=== PATIENT | female | born 1950 | race Caucasian/White ===

== ENCOUNTER 2016-12-17 11:34 | Emergency (ER) | payer OTHER ==
[2016-12-17 11:46] VITALS: BP 154/86
[2016-12-17] MEDS ORDERED: Aspirin Low Dose CHEW TAB* 81 MG PO ONE (13:27)
--- NOTE | 2016-12-17 14:02 | UC ---
Dizzy HPI HPI Summary: woke today with spinning sensation, headache and nausea, her arms and chest feel hollow and empty - History Of Current Complaint Chief Complaint: UCDizziness Stated Complaint: DIZZINESS Time Seen by Provider: 12/17/16 13:06 Hx Obtained From: Patient ?: No Onset/Duration: Sudden Onset Timing: Intermittent Episode Lasting - most of the vertigo has resolved, hollowness and nausea continues Severity Initially: Severe Severity Currently: Moderate Character: Room Spinning Aggravating Factor(s): Nothing Alleviating Factor(s): Closing Eyes Associated Signs And Symptoms: Positive: Nausea - Allergies/Home Medications Allergies/Adverse Reactions: Allergies Allergy/AdvReac Type Severity Reaction Status Date / Time Bee Venom Allergy Unknown Unknown Verified 05/13/12 13:58 Reaction Details PMH/Surg Hx/FS Hx/Imm Hx Previously Healthy: No Cancer History: Colorectal Cancer - Surgical History Surgical History: Yes Surgery Procedure, Year, and Place: see above - Family History Known Family History: Positive: None - Social History Occupation: Retired Lives: With Family Alcohol Use: Rare Substance Use Type: None Smoking Status (MU): Never Smoked Tobacco Review of Systems Constitutional: Negative Skin: Negative Eyes: Negative ENT: Negative Respiratory: Negative Gastrointestinal: Nausea Genitourinary: Negative Motor: Negative Neurovascular: Negative Musculoskeletal: Negative Neurological: Headache Psychological: Negative All Other Systems Reviewed And Are Negative: Yes Physical Exam Triage Information Reviewed: Yes Appearance: Well-Appearing, No Pain Distress, Well-Nourished Vital Signs: Initial Vital Signs Temp 97.5 F 12/17/16 11:42 Pulse 80 12/17/16 11:42 Resp 18 12/17/16 11:42 BP 154/86 12/17/16 11:42 Pulse Ox 100 12/17/16 11:42 Vital Signs Reviewed: Yes Eye Exam: Normal Eyes: Positive: Conjunctiva Clear ENT Exam: Normal ENT: Positive: Normal ENT inspection, Hearing grossly normal, Pharynx normal, TMs normal, Other: - perrls, eomi, fundascopic exam wnl. Negative: Nasal congestion, Nasal drainage, Trismus, Muffled/hoarse voice Dental Exam: Normal Neck exam: Normal Neck: Positive: Supple, Nontender, No Lymphadenopathy Respiratory Exam: Normal Respiratory: Positive: Chest non-tender, Lungs clear, Normal breath sounds, No respiratory distress, No accessory muscle use Cardiovascular Exam: Normal Cardiovascular: Positive: RRR, No Murmur, Pulses Normal, Brisk Capillary Refill Abdominal Exam: Normal Abdomen Description: Positive: Nontender, No Organomegaly, Soft Bowel Sounds: Positive: Present Musculoskeletal Exam: Normal Musculoskeletal: Positive: Strength Intact, ROM Intact, No Edema Neurological Exam: Normal Neurological: Positive: Alert, Muscle Tone Normal Psychological Exam: Normal Psychological: Positive: Normal Response To Family, Age Appropriate Behavior Skin Exam: Normal Diagnostics - EKG Cardiac Rate: NL Cardiac Rhythm: Sinus: Normal, Other Rhythm: Normal - with PAC Ectopy: PACs ST Segment: Non-Specific - V4,5,6 flattened t waves Dizzy Course/Dx - Course Course Of Treatment: Asprin, transfer to hospital, refused EMS driving - Differential Dx/Diagnosis Differential Diagnosis/HQI/PQRI: Benign Paroxysmal Positional Vertigo, Coronary Artery Disease, Meniere's Disease, Myocardial Infarction, Transient Ischemic Attack Provider Diagnoses: Vertigo Discharge - Discharge Plan Condition: Fair Disposition: HOME Patient Education Materials: Vertigo (ED), Dizziness (ED) Referrals: Rina Alas MD [Primary Care Provider] - Additional Instructions: We recommend that you report directly to the emergency department for additional care and testing
== END 2016-12-17 13:35 | disposition home or self-care (01) ==
LOC: UCEAST 11:34
DX: R42 Dizziness and giddiness (principal); Z91.030 Bee allergy status; Z85.038 Personal history of other malignant neoplasm of large intestine
CPT/HCPCS: 93005; 99212; A9270-GY; G0463

== ENCOUNTER 2016-12-17 14:05 | Emergency (ER) | payer OTHER ==
[2016-12-17] MEDS ORDERED: Meclizine TAB* 12.5 MG PO ONE ×2 (16:50→19:05)
--- NOTE | 2016-12-17 17:17 | RAD ---
INDICATION: Vertigo COMPARISON: None TECHNIQUE: Noncontrast axial source images were acquired from the skull base to the vertex. FINDINGS: Ventricles/sulci: The ventricles and cisterns are normal in size and configuration for age. Brain parenchyma: There is no focal parenchymal finding, evidence of intracranial mass, or intracranial mass effect. Intracranial hemorrhage:None. Extra-axial spaces: There are no abnormal extra axial fluid collections or evidence of extra-axial mass. Calvarium: There is no calvarial fracture or other calvarial abnormality. Scalp: There is no evidence of scalp or extracalvarial soft tissue abnormality. Paranasal sinuses/mastoid: The paranasal sinuses and mastoid air cells are clear. Other: None. IMPRESSION: NO ACUTE INTRACRANIAL FINDINGS
[2016-12-17 17:57] LABS: Hematocrit 38 % (35-47); Hemoglobin 12.9 g/dl (12.0-16.0); Mean Corpuscular HGB Conc 34 g/dl (31-36); Mean Corpuscular Hemoglobin 30 pg (27-31); Mean Corpuscular Volume 89 fL (80-97); Mean Platelet Volume 7 um3 (7.4-10.4); Red Blood Count 4.27 10^6/ul (4.0-5.4); Red Cell Distribution Width 13 % (10.5-15); White Blood Count 4.4 10^3/ul (3.5-10.8)
[2016-12-17 18:13] LABS: Albumin 4.5 g/dL (3.2-5.2); BUN/Creatinine Ratio 14.7 (8-20); Calcium 9.7 mg/dL (8.6-10.3); EGFR African American 110.7 (>60); Globulin 3.2 g/dL (2-4); Total Bilirubin 0.4 mg/dL (0.2-1.0); Total Protein 7.7 g/dL (6.4-8.9)
[2016-12-17 18:16] LABS: Urine Bilirubin Negative (Negative); Urine Glucose Negative (Negative); Urine Nitrite Negative (Negative)
[2016-12-17] MEDS ORDERED: predniSONE TAB* 20 MG PO ONE (19:05)
[2016-12-17 19:29] VITALS: BP 149/80
--- NOTE | 2016-12-17 21:33 | ED ---
River Loera Alfonso, scribed for Junior Brown MD on 12/17/16 at 1646 . Dizziness - HPI Summary HPI Summary: This patient is a 66 year old female presenting from [facility] to [facility] accompanied by with a chief complaint of dizziness since this morning. The CC is described as room spinning. The patient rates the pain 2/10 in severity. Symptoms aggravated by bending down and alleviated by lying down and closing eyes. Patient reports nausea, headache (chronic since she had shingles), and arms felt empty and hollow. Patient denies ear ringing, vomiting, and vision changes. - History Of Current Complaint Chief Complaint: EDDizziness Stated Complaint: DIZZINESS/SENT FROM [facility] Time Seen by Provider: 12/17/16 16:25 Hx Obtained From: Patient Onset/Duration: Still Present Severity Initially: Moderate Severity Currently: Moderate Character: Room Spinning Aggravating Factor(s): Other - "Bending down." Alleviating Factor(s): Lying Down, Closing Eyes Associated Signs And Symptoms: Positive: Other: - Patient reports nausea, headache (chronic since she had shingles), and arms felt empty and hollow. Patient denies ear ringing, vomiting, and vision changes. - Allergies/Home Medications Allergies/Adverse Reactions: Allergies Allergy/AdvReac Type Severity Reaction Status Date / Time Bee Venom Allergy Unknown Unknown Verified 05/13/12 13:58 Reaction Details PMH/Surg Hx/FS Hx/Imm Hx Sensory History: Denies: Hx Deafness Opthamlomology History: Denies: Hx Legally Blind - Cancer History Cancer Type, Location and Year: colon polyp removed Hx Chemotherapy: No Hx Radiation Therapy: No - Surgical History Surgery Procedure, Year, and Place: see above Infectious Disease History: No Infectious Disease History: Denies: Hx Clostridium Difficile, Hx Hepatitis, Hx Human Immunodeficiency Virus (HIV), Hx of Known/Suspected MRSA, Hx Shingles, Hx Tuberculosis, Hx Known/ Suspected VRE, Hx Known/Suspected VRSA, History Other Infectious Disease, Traveled Outside the [place] in Last 30 Days - Family History Known Family History: Positive: Hypertension - Mother - Social History Alcohol Use: Rare Substance Use Type: Reports: None Smoking Status (MU): Never Smoked Tobacco Review of Systems Positive: Other - Negative vision changes. Positive: Other - Negative ear ringing. Positive: Nausea. Negative: Vomiting Neurological: Other - Positive dizziness, headache (chronic since she had shingles), and arms felt empty and hollow. All Other Systems Reviewed And Are Negative: Yes Physical Exam Triage Information Reviewed: Yes Vital Signs On Initial Exam: Initial Vitals Temp Pulse Resp BP Pulse Ox 98.2 F 59 20 154/82 100 12/17/16 14:09 12/17/16 14:09 12/17/16 14:09 12/17/16 14:09 12/17/16 14:09 Vital Signs Reviewed: Yes Appearance: Positive: Well-Appearing, No Pain Distress Skin: Positive: Warm, Skin Color Reflects Adequate Perfusion, Dry Head/Face: Positive: Normal Head/Face Inspection Eyes: Positive: Normal ENT: Positive: Normal ENT inspection Neck: Positive: Supple, Nontender Respiratory/Lung Sounds: Positive: Clear to Auscultation, Breath Sounds Present Cardiovascular: Positive: RRR Abdomen Description: Positive: Nontender, Soft Bowel Sounds: Positive: Present Musculoskeletal: Positive: Normal Neurological: Positive: Sensory/Motor Intact, Alert, Oriented to Person Place, Time, CN Intact II-III, Other - Ashley-hpielke test to the right elicited nausea but no nystagmus or vertigo. DixHallpike test to the left was negative. Psychiatric: Positive: Affect/Mood Appropriate - [place] Coma Scale Best Eye Response: 4 - Spontaneous Best Motor Response: 6 - Obeys Commands Best Verbal Response: 5 - Oriented [place]ow Coma Scale Comments: Diagnostics - Vital Signs Vital Signs Temp Pulse Resp BP Pulse Ox 12/17/16 16:23 98.2 F 59 16 124/58 100 12/17/16 14:09 98.2 F 59 20 154/82 100 - Laboratory Lab Results: Lab Results 12/17/16 12/17/16 12/17/16 Range/Units 17:25 17:25 17:25 WBC 4.4 (3.5-10.8) 10^3/ul RBC 4.27 (4.0-5.4) 10^6/ul Hgb 12.9 (12.0-16.0) g/dl Hct 38 (35-47) % MCV 89 (80-97) fL MCH 30 (27-31) pg MCHC 34 (31-36) g/dl RDW 13 (10.5-15) % Plt Count 238 (150-450) 10^3/ul MPV 7 L (7.4-10.4) um3 Neut % (Auto) 50.6 (38-83) % Lymph % (Auto) 36.8 (25-47) % Ida % (Auto) 11.0 H (1-9) % Eos % (Auto) 0.7 (0-6) % Baso % (Auto) 0.9 (0-2) % Absolute Neuts (auto) 2.2 (1.5-7.7) 10^3/ul Absolute Lymphs (auto) 1.6 (1.0-4.8) 10^3/ul Absolute Monos (auto) 0.5 (0-0.8) 10^3/ul Absolute Eos (auto) 0 (0-0.6) 10^3/ul Absolute Basos (auto) 0 (0-0.2) 10^3/ul Absolute Nucleated RBC 0.01 10^3/ul Nucleated RBC % 0.2 INR (Anticoag Therapy) 0.96 (0.89-1.11) Sodium (133-145) mmol/L Potassium (3.5-5.0) mmol/L Chloride (101-111) mmol/L Carbon Dioxide (22-32) mmol/L Anion Gap (2-11) mmol/L BUN (6-24) mg/dL Creatinine (0.51-0.95) mg/dL Est GFR ( Amer) (>60) Est GFR (Non-Af Amer) (>60) BUN/Creatinine Ratio (8-20) Glucose (70-100) mg/dL Lactic Acid (0.5-2.0) mmol/L Calcium (8.6-10.3) mg/dL Total Bilirubin (0.2-1.0) mg/dL AST (13-39) U/L ALT (7-52) U/L Alkaline Phosphatase (34-104) U/L Troponin I (<0.04) ng/mL Total Protein (6.4-8.9) g/dL Albumin (3.2-5.2) g/dL Globulin (2-4) g/dL Albumin/Globulin Ratio (1-3) TSH (0.34-5.60) mcIU/mL Urine Color Straw Urine Appearance Clear Urine pH 7.0 (5-9) Ur Specific [place] 1.003 L (1.010-1.030) Urine Protein Negative (Negative) Urine Ketones Negative (Negative) Urine Blood Negative (Negative) Urine Nitrate Negative (Negative) Urine Bilirubin Negative (Negative) Urine Urobilinogen Negative (Negative) Ur Leukocyte Esterase Negative (Negative) Urine Glucose Negative (Negative) 12/17/16 12/17/16 12/17/16 Range/Units 17:25 17:25 17:25 WBC (3.5-10.8) 10^3/ul RBC (4.0-5.4) 10^6/ul Hgb (12.0-16.0) g/dl Hct (35-47) % MCV (80-97) fL MCH (27-31) pg MCHC (31-36) g/dl RDW (10.5-15) % Plt Count (150-450) 10^3/ul MPV (7.4-10.4) um3 Neut % (Auto) (38-83) % Lymph % (Auto) (25-47) % Ida % (Auto) (1-9) % Eos % (Auto) (0-6) % Baso % (Auto) (0-2) % Absolute Neuts (auto) (1.5-7.7) 10^3/ul Absolute Lymphs (auto) (1.0-4.8) 10^3/ul Absolute Monos (auto) (0-0.8) 10^3/ul Absolute Eos (auto) (0-0.6) 10^3/ul Absolute Basos (auto) (0-0.2) 10^3/ul Absolute Nucleated RBC 10^3/ul Nucleated RBC % INR (Anticoag Therapy) (0.89-1.11) Sodium 134 (133-145) mmol/L Potassium 4.0 (3.5-5.0) mmol/L Chloride 102 (101-111) mmol/L Carbon Dioxide 26 (22-32) mmol/L Anion Gap 6 (2-11) mmol/L BUN 10 (6-24) mg/dL Creatinine 0.68 (0.51-0.95) mg/dL Est GFR ( Amer) 110.7 (>60) Est GFR (Non-Af Amer) 86.0 (>60) BUN/Creatinine Ratio 14.7 (8-20) Glucose 107 H (70-100) mg/dL Lactic Acid 0.9 (0.5-2.0) mmol/L Calcium 9.7 (8.6-10.3) mg/dL Total Bilirubin 0.40 (0.2-1.0) mg/dL AST 21 (13-39) U/L ALT 13 (7-52) U/L Alkaline Phosphatase 45 (34-104) U/L Troponin I 0.00 (<0.04) ng/mL Total Protein 7.7 (6.4-8.9) g/dL Albumin 4.5 (3.2-5.2) g/dL Globulin 3.2 (2-4) g/dL Albumin/Globulin Ratio 1.4 (1-3) TSH 1.66 (0.34-5.60) mcIU/mL Urine Color Urine Appearance Urine pH (5-9) Ur Specific [place] (1.010-1.030) Urine Protein (Negative) Urine Ketones (Negative) Urine Blood (Negative) Urine Nitrate (Negative) Urine Bilirubin (Negative) Urine Urobilinogen (Negative) Ur Leukocyte Esterase (Negative) Urine Glucose (Negative) Result Diagrams: 12/17/16 17:25 12/17/16 17:25 Lab Statement: Any lab studies that have been ordered have been reviewed, and results considered in the medical decision making process. - CT Brain CT Interpretation Completed By: Radiologist - NO ACUTE INTRACRANIAL FINDINGS - EKG 1736 Cardiac Rate: Bradycardia - BPM 54 EKG Rhythm: Sinus Bradycardia EKG Interpretation: NAD Dizzy Course/Dx - Course Course Of Treatment: Ms. Kaylynn Alonzo woke this AM and had an episode of vertigo when she opened her eyes. It improved when she closed them and she eventually was able to get out of bed and it recured briefly. She's better but it has happened a few times since and makes her nauseated. She denies tinnitus. A Ashley-Halpike elicited only mild nausea to the right. She had no nystagmus and none was brought out by D-H. Ct and W/U was negative. I spoke with Dr. Alcantar and her recommended a steroid burst and she will F/U with Dr. Alas. - Diagnoses Provider Diagnoses: Vertigo - Provider Notifications Discussed Care Of Patient With: Sae Alcantar Time Discussed With Above Provider: 18:44 Instructed by Provider To: Other - Consulted Dr. Alcantar (neurologist) who recommends discharge with follow up at his office. Discharge - Discharge Plan Condition: Stable Disposition: HOME Prescriptions: Meclizine TAB* [Antivert 12.5 TAB*] 25 mg PO TID PRN #20 tab PRN Reason: Dizziness Methylprednisolone [Medrol Dosepak 4 MG*] 4 mg PO .SEE AGATA INSTRUCTION #1 tab Patient Education Materials: Dizziness (ED) Referrals: Rina Alas MD [Primary Care Provider] - 3 Days Sae Alcantar MD [Medical Doctor] - 3 Days The documentation as recorded by the River nolasco Alfonso accurately reflects the service I personally performed and the decisions made by me, Junior Brown MD.
== END 2016-12-17 19:30 | disposition home or self-care (01) ==
LOC: ED 14:05
DX: R42 Dizziness and giddiness (principal); R11.0 Nausea; R51 Headache; Z91.030 Bee allergy status; R00.1 Bradycardia, unspecified
CPT/HCPCS: 36415; 70450; 80053; 81003; 83605; 84443; 84484; 85025; 85610; 93005; 99283; A9270-GY; J7512

== ENCOUNTER 2016-12-23 13:41 | Emergency (ER) | payer OTHER ==
[2016-12-23 13:48] VITALS: BP 122/60
--- NOTE | 2016-12-23 13:51 | UC ---
Bite Injury/Animal HPI - HPI Summary HPI Summary: 66 YEAR OLD FEMALE PRESENTS WITH COMPLAINS OF RIGHT HIP TICK BITE. - History of Current Complaint Chief Complaint: UCSkin Stated Complaint: POSSIBLE TICK BITE Time Seen by Provider: 12/23/16 13:49 Hx Obtained From: Patient Severity Currently: Moderate Severity Initially: Moderate Pain Scale Used: 0-10 Numeric - 5 Onset/Duration: Sudden Onset Type of Bite: Animal - TICK Character: Puncture - Allergies/Home Medications Allergies/Adverse Reactions: Allergies Allergy/AdvReac Type Severity Reaction Status Date / Time Bee Venom Allergy Unknown Unknown Verified 05/13/12 13:58 Reaction Details PMH/Surg Hx/FS Hx/Imm Hx Previously Healthy: Yes - Surgical History Surgical History: Yes Surgery Procedure, Year, and Place: colon polyps removed - Family History Known Family History: Positive: None, Hypertension - Mother - Social History Alcohol Use: Rare Substance Use Type: None Smoking Status (MU): Never Smoked Tobacco Review of Systems Constitutional: Negative Skin: Rash Eyes: Negative ENT: Negative Respiratory: Negative Cardiovascular: Negative Gastrointestinal: Negative Genitourinary: Negative Motor: Negative Neurovascular: Negative Musculoskeletal: Other: - TICK BITE RIGHT HIP Neurological: Negative Psychological: Negative All Other Systems Reviewed And Are Negative: Yes Physical Exam Triage Information Reviewed: Yes Vital Signs: Initial Vital Signs Temp 36.4 C 12/23/16 13:45 Pulse 77 12/23/16 13:45 Resp 18 12/23/16 13:45 BP 122/60 12/23/16 13:45 Pulse Ox 100 12/23/16 13:45 Vital Signs Reviewed: Yes Eye Exam: Normal ENT Exam: Normal Dental Exam: Normal Neck exam: Normal Neck: Positive: 1 Respiratory Exam: Normal Cardiovascular Exam: Normal Abdominal Exam: Normal Musculoskeletal Exam: Normal Neurological Exam: Normal Psychological Exam: Normal Skin: Positive: rashes, Other - RIGHT HIP TICK BITE Bite Injury Course/Dx - Differential Dx/Diagnosis Provider Diagnoses: RIGHT HIP TICK BITE Discharge - Discharge Plan Condition: Stable Disposition: HOME Prescriptions: DOXYcycline CAP(*) [DOXYcycline 100MG CAP(*)] 100 mg PO BID #42 cap Mupirocin 2% OINT* [Bactroban 2 % Oint*] 1 applic TOPICAL BID #1 tube Patient Education Materials: Lyme Disease (ED), Insect Bite or Sting (ED), Tick Bite (ED), [place] Spotted Fever (ED) Referrals: Rina Alas MD [Primary Care Provider] -
== END 2016-12-23 14:06 | disposition home or self-care (01) ==
LOC: UCEAST 13:41
DX: S70.261A Insect bite (nonvenomous), right hip, initial encounter (principal); W57.XXXA Bitten or stung by nonvenomous insect and other nonvenomous arthropods, initial encounter; Z91.030 Bee allergy status; Z86.010 Personal history of colon polyps
CPT/HCPCS: 86618; 99212; G0463

== ENCOUNTER 2017-06-27 10:47 | Day surgery (SDC) | payer OTHER ==
[~2017-06-27 10:47] MED LIST: Acetaminophen TAB* 325 MG PO PRN; Buffered Lidocaine 0.9% SYRIN* 5 ML/SYR SYRINGE INTRADERM ONE; Cyclopentolate 1% OPTH.SOL* 2 ML BTL ONE; Lidocaine 2% EPI 1:200000 MPF* 20 ML VIAL ONE; Midazolam* 1 MG/ML 2 ML VIAL (2 MG) ONE; Neomycin/Polymy/Dex OPTH.SUSP* MAXITROL 0.1% 5 ML ONE; Phenylephrine 2.5% OPTH.SOL* 2 ML BTL ONE; Povidone Iodine 5% OPTH* 30 ML BTL ONE; Proparacaine 0.5% OPHTH.SOL* 15 ML BTL ONE; acetaZOLAMIDE TAB* 250 MG ONE
[2017-06-27 13:53] VITALS: BP 150/91
[2017-06-27] MEDS ORDERED: Lidocaine 1% MPF* 2 ML VIAL ONE (14:29)
[2017-06-27] MEDS ORDERED: Ketorolac 0.5% OPHTH (NF) 0.5 % 5 ML BTL ONE (14:29)
--- NOTE | 2017-06-27 14:44 | OP ---
DATE OF OPERATION: 06/27/2017. DATE OF : 1950. SURGEON: Ramin Cantu M.D. PREOPERATIVE DIAGNOSIS: Cataract right eye, primary open-angle glaucoma, mild stage. POSTOPERATIVE DIAGNOSIS: Cataract right eye, primary open-angle glaucoma, mild stage. OPERATIVE PROCEDURE: Extracapsular cataract extraction with intraocular lens implant and iStent righ t eye. PROCEDURE: The patient was brought to the operating room after being given 1/2% Alcaine with epineph rine drops in the preoperative area. The eye was prepped and draped in the usual sterile fashion. S terile drape and eyelid speculum were placed. Again, topical 1/2% Alcaine with epinephrine was given . A paracentesis incision was made at the 9 o'clock position with the No.75 blade. Clear cornea inc ision 2.2 x 2.2-mm was created at the 12 o'clock position starting at the anterior limbus using the 2 .2-mm keratome. The anterior chamber was irrigated with 0.4 mL of 1% non-preservative intracameral l idocaine and filled with DisCoVisc. A capsulorrhexis was completed using the cystotome and the Utrat a forceps. Hydrodissection was performed with balanced salt solution. The lens nucleus was removed w ith the Phacoemulsification handpiece without incident. Cortex was removed with the irrigation-aspir ation handpiece. The capsular bag was re-inflated using DisCoVisc and an [id number] 20.5 implant was ins erted with the shooter, followed by an iStent [id number] inserted with the shooter into the trabecular m eshwork at the 3 o'clock position. The irrigation-aspiration handpiece was used to remove all residu al DisCoVisc. The eye was refilled with balanced salt solution and the wound checked and found to be watertight. Topical Maxitrol drops were given. [id number]/[facility] #: [id number]
== END 2017-06-27 13:42 | disposition home or self-care (01) ==
LOC: OREAST 10:47
PROVIDERS: ATTEND Specialist
DX: H25.11 Age-related nuclear cataract, right eye (principal); H40.1131 Primary open-angle glaucoma, bilateral, mild stage; E78.5 Hyperlipidemia, unspecified; B02.8 Zoster with other complications; R42 Dizziness and giddiness; R51 Headache
CPT/HCPCS: A9270-GY; C1783; J2250; V2632

== ENCOUNTER 2017-07-04 07:13 | Day surgery (SDC) | payer OTHER ==
[~2017-07-04 07:13] MED LIST changes: -Cyclopentolate 1% OPTH.SOL* 2 ML BTL ONE; -Lidocaine 2% EPI 1:200000 MPF* 20 ML VIAL ONE; -Midazolam* 1 MG/ML 2 ML VIAL (2 MG) ONE; -Neomycin/Polymy/Dex OPTH.SUSP* MAXITROL 0.1% 5 ML ONE; -Phenylephrine 2.5% OPTH.SOL* 2 ML BTL ONE; -Povidone Iodine 5% OPTH* 30 ML BTL ONE; -Proparacaine 0.5% OPHTH.SOL* 15 ML BTL ONE; -acetaZOLAMIDE TAB* 250 MG ONE
[2017-07-04] MEDS ORDERED: Midazolam* 1 MG/ML 2 ML VIAL (2 MG) ONE ×2 (08:51→09:15)
[2017-07-04 10:01] VITALS: BP 151/77
--- NOTE | 2017-07-04 10:46 | OP ---
DATE OF OPERATION: 07/04/2017. DATE OF : 1950. SURGEON: Ramin Cantu M.D. PREOPERATIVE DIAGNOSIS: Cataract left eye, open angle glaucoma. POSTOPERATIVE DIAGNOSIS: Cataract left eye, open angle glaucoma. OPERATIVE PROCEDURE: Extracapsular cataract extraction with intraocular lens implant and iStent left eye. PROCEDURE: The patient was brought to the operating room after being given 1/2% Alcaine with epineph rine drops in the preoperative area. The eye was prepped and draped in the usual sterile fashion. S terile drape and eyelid speculum were placed. Again, topical 1/2% Alcaine with epinephrine was given . A paracentesis incision was made at the 3 o'clock position with the No.75 blade. Clear cornea inc ision 2.2 x 2.2-mm was created at the 6 o'clock position starting at the anterior limbus using the 2. 2-mm keratome. The anterior chamber was irrigated with 0.4 mL of 1% non-preservative intracameral li docaine and filled with DisCoVisc. A capsulorrhexis was completed using the cystotome and the Utrata forceps. Hydrodissection was performed with balanced salt solution. The lens nucleus was removed wi th the Phacoemulsification handpiece without incident. Cortex was removed with the irrigation-aspira tion handpiece. The capsular bag was re-inflated using DisCoVisc and an [id number] 20.5 implant was inse rted with the shooter, followed by an iStent [id number] inserted with the shooter into the trabecular me shwork at the 9 o'clock position. The irrigation-aspiration handpiece was used to remove all residua l DisCoVisc. The eye was refilled with balanced salt solution and the wound checked and found to be watertight. Topical Maxitrol drops were given. [id number]/[facility] #: [id number]
[2017-07-04] MEDS ORDERED: Lidocaine 1% MPF* 2 ML VIAL ONE (12:10)
[2017-07-04] MEDS ORDERED: Phenylephrine 2.5% OPTH.SOL* 2 ML BTL ONE (12:10)
[2017-07-04] MEDS ORDERED: Cyclopentolate 1% OPTH.SOL* 2 ML BTL ONE (12:10)
[2017-07-04] MEDS ORDERED: Proparacaine 0.5% OPHTH.SOL* 15 ML BTL ONE (12:10)
[2017-07-04] MEDS ORDERED: Lidocaine 2% EPI 1:200000 MPF* 20 ML VIAL ONE (12:10)
[2017-07-04] MEDS ORDERED: Povidone Iodine 5% OPTH* 30 ML BTL ONE (12:10)
[2017-07-04] MEDS ORDERED: Ketorolac 0.5% OPHTH (NF) 0.5 % 5 ML BTL ONE (12:10)
[2017-07-04] MEDS ORDERED: Neomycin/Polymy/Dex OPTH.SUSP* MAXITROL 0.1% 5 ML ONE (12:10)
[2017-07-04] MEDS ORDERED: acetaZOLAMIDE TAB* 250 MG ONE (12:10)
== END 2017-07-04 09:52 | disposition home or self-care (01) ==
LOC: OREAST 07:13
PROVIDERS: ATTEND Specialist
DX: H25.12 Age-related nuclear cataract, left eye (principal); H40.1131 Primary open-angle glaucoma, bilateral, mild stage; E78.5 Hyperlipidemia, unspecified
CPT/HCPCS: A9270-GY; C1783; J2250; V2632

== ENCOUNTER 2022-05-04 15:37 | Observation (INO) ==
[2022-05-04 16:32] LABS: ABS Lymphocytes 1.5 10^3/ul (1.0-4.8); ABS Monocytes 0.5 10^3/ul (0-0.8); ABS Neutrophils 3.1 10^3/ul (1.5-7.7); Eosinophil % 0.4 %; Hematocrit 37 % (35-47); Hemoglobin 12.7 g/dL (12.0-16.0); Lymphocyte % 28.5 %; Mean Corpuscular HGB Conc 34 g/dL (31-36); Mean Corpuscular Hemoglobin 30 pg (27-31); Mean Corpuscular Volume 87 fL (80-97); Mean Platelet Volume 7.3 fL (7.4-10.4); Platelet Count 254 10^3/uL (150-450); Red Blood Count 4.24 10^6 /uL (3.70-4.87); Red Cell Distribution Width 13 % (10-15); White Blood Count 5.1 10^3/uL (3.5-10.8)
[2022-05-04 17:20] LABS: Albumin 4.6 g/dL (3.2-5.2); Albumin/Globulin Ratio 1.6 (1-3); C Reactive Protein 4.52 mg/L (<8.01); Calcium 9.6 mg/dL (8.6-10.3); Globulin 2.9 g/dL (2-4); Magnesium 1.9 mg/dL (1.9-2.7); Potassium 3.8 mmol/L (3.5-5.0); Total Bilirubin 0.9 mg/dL (0.2-1.0); Total Protein 7.5 g/dL (6.4-8.9); eGFR CKD-EPI 94.7 (>60)
[2022-05-04 17:46] LABS: High Sensitivity Troponin 1 Hr 5 pg/mL (<15)
[2022-05-04 20:47] LABS: Urine Appearance Clear; Urine Bilirubin Negative (Negative); Urine Blood Negative (Negative); Urine Color Yellow; Urine Glucose Negative (Negative); Urine Ketones 2+ (Negative); Urine Nitrite Negative (Negative); Urine Protein Negative (Negative); Urine Specific Gravity 1.006 (1.002-1.030); Urine Urobilinogen Negative (Negative)
[2022-05-04 20:54] LABS: Phosphorus 2.9 mg/dL (2.5-5.0)
[2022-05-04 21:09] LABS: TSH Ultra Thyroid Stim Horm 2.82 mcIU/mL (0.34-5.60)
[2022-05-04] MEDS ORDERED: Pravastatin 10 mg TAB (NF) PO ONE (23:05)
[2022-05-05] MEDS ORDERED: Pravastatin 20 mg TAB (NF) PO ONE (00:04)
[2022-05-05] MEDS ORDERED: NS 0.9% 500 ml BAG 500 ML IV ONE (03:36)
[2022-05-05] MEDS ORDERED: hydrALAZINE 20 mg/ml 1 ML Vial IV IV SLOW PU PRN (05:00)
[2022-05-05] MEDS ORDERED: Magnesium Hydroxide LIQ 30 ML UDC PO ONE (05:25)
[2022-05-05] MEDS: Enoxaparin 40 MG/0.4 ML SYR SUBCUT SCH (05:35)
[2022-05-05] MEDS ORDERED: Lorazepam PYXIS KEY PRN (07:07)
[2022-05-05] MEDS ORDERED: LORazepam 2 mg VIAL 1 ml IV PUSH ONE (07:08)
[2022-05-05 07:12] LABS: TSH Ultra Thyroid Stim Horm 5.73 mcIU/mL (0.34-5.60)
[2022-05-05 07:14] LABS: Free T4 1.01 ng/dL (0.61-1.12)
[2022-05-05 07:18] LABS: Calcium 9.1 mg/dL (8.6-10.3); Magnesium 1.9 mg/dL (1.9-2.7); Phosphorus 3.3 mg/dL (2.5-5.0); Potassium 3.9 mmol/L (3.5-5.0); eGFR CKD-EPI 92.2 (>60)
[2022-05-05 09:03] LABS: Osmolality Serum 260 mOsm/kg (275-295)
[2022-05-05] MEDS ORDERED: Labetalol IV 5 MG/ML 20 ml VIAL IV PUSH PRN (09:30)
[2022-05-05] MEDS: CMC:Meloxicam 7.5 mg TAB (NF) PO SCH (09:31)
[2022-05-05 13:00] LABS: HDL Cholesterol 69.6 mg/dL
[2022-05-05 13:13] LABS: Anion Gap 9 mmol/L (2-11); Blood Urea Nitrogen 11 mg/dL (6-24); CO2 Carbon Dioxide 24 mmol/L (22-32); Chloride 92 mmol/L (101-111); Glucose 95 mg/dL (70-100); Potassium 3.9 mmol/L (3.5-5.0); Sodium 125 mmol/L (135-145); eGFR CKD-EPI 92.6 (>60)
[2022-05-05 13:36] LABS: Vitamin B12 > 1450 pg/mL (180-914)
[2022-05-05] MEDS: LIDOCAINE TOPICAL SCH ×3 (14:11→21:23)
[2022-05-05] MEDS: KETAMINE TOPICAL SCH ×3 (14:11→21:23)
[2022-05-05 18:15] LABS: Urine Osmo 348 mOsm/kg (150-1150)
[2022-05-05] MEDS ORDERED: Pravastatin 20 mg TAB (NF) PO SCH (21:00)
[2022-05-06 00:29] LABS: Calcium 8.8 mg/dL (8.6-10.3); Potassium 3.9 mmol/L (3.5-5.0); eGFR CKD-EPI 92.9 (>60)
[2022-05-06] MEDS: Enoxaparin 40 MG/0.4 ML SYR SUBCUT SCH (06:04)
[2022-05-06 07:23] LABS: ABS Eosinophils 0.1 10^3/ul (0-0.6); ABS Lymphocytes 1.2 10^3/ul (1.0-4.8); ABS Monocytes 0.6 10^3/ul (0-0.8); ABS Neutrophils 1.8 10^3/ul (1.5-7.7); Eosinophil % 2.6 %; Hematocrit 36 % (35-47); Hemoglobin 12.2 g/dL (12.0-16.0); Lymphocyte % 33.3 %; Mean Corpuscular HGB Conc 34 g/dL (31-36); Mean Corpuscular Hemoglobin 30 pg (27-31); Mean Corpuscular Volume 88 fL (80-97); Mean Platelet Volume 7.2 fL (7.4-10.4); Nucleated Red Blood Cells % 0.2; Platelet Count 245 10^3/uL (150-450); Red Blood Count 4.12 10^6 /uL (3.70-4.87); Red Cell Distribution Width 13 % (10-15); White Blood Count 3.7 10^3/uL (3.5-10.8)
[2022-05-06 07:37] LABS: Magnesium 2.3 mg/dL (1.9-2.7); eGFR CKD-EPI 94.3 (>60)
[2022-05-06] MEDS: LIDOCAINE TOPICAL SCH ×2 (09:18→14:22)
[2022-05-06] MEDS: KETAMINE TOPICAL SCH ×2 (09:18→14:22)
[2022-05-06] MEDS: CMC:Meloxicam 7.5 mg TAB (NF) PO SCH (09:26)
[2022-05-06 12:43] LABS: Potassium 3.9 mmol/L (3.5-5.0); eGFR CKD-EPI 91.6 (>60)
[2022-05-06 16:21] VITALS: BP 126/73
== END 2022-05-06 14:48 | disposition home or self-care (01) ==
LOC: ED 15:37 → EDHOLD 15:37 → SUATTDRO 23:05 → EDHOLD 05-05 01:03 → MEDTELE 05-05 02:20
PROVIDERS: ADMIT Internal Medicine; ATTEND Internal Medicine

== ENCOUNTER 2023-05-10 10:11 | Observation (INO) ==
[2023-05-10] MEDS ORDERED: Lactated Ringers 1000 ml BAG 1,000 ML IV ONE (10:40)
[2023-05-10] MEDS ORDERED: Benzocaine/Menthol LOZ PO ONE (10:44)
[2023-05-10 11:00] LABS: ABS Lymphocytes 0.7 10^3/uL (1.0-4.8); ABS Monocytes 0.7 10^3/uL (0.0-0.9); ABS Neutrophils 6.3 10^3/uL (1.5-7.6); Hematocrit 36.7 % (35-45); Hemoglobin 13.2 g/dL (11.5-14.3); Lymphocyte % 8.9 %; Mean Corpuscular Hemoglobin 30.8 pg (27-33); Mean Corpuscular Hgb Conc 36.1 g/dL (31-36); Mean Corpuscular Volume 85.4 fL (80-97); Mean Platelet Volume 7.9 fL (7.5-11.2); Platelet Count 157 10^3/uL (150-450); Red Blood Count 4.29 10^6/uL (3.63-4.92); Red Cell Distribution Width 13.7 % (12-17); White Blood Count 7.7 10^3/uL (3.8-11.8)
[2023-05-10 11:17] LABS: Albumin 4.5 g/dL (3.2-5.2); Albumin/Globulin Ratio 1.2 (1-3); C Reactive Protein 88.69 mg/L (<8.01); Calcium 9.4 mg/dL (8.6-10.3); Creatinine, Serum 0.69 mg/dL (0.51-0.95); Globulin 3.7 g/dL (2-4); Potassium 4.1 mmol/L (3.5-5.0); Total Bilirubin 1.2 mg/dL (0.2-1.0); Total Protein 8.2 g/dL (6.4-8.9)
[2023-05-10] MEDS ORDERED: Iohexol 350 (CONTRAST) 500 ML MDV IV ONE (11:19)
[2023-05-10] MEDS ORDERED: Remdesivir 100 mg Vial 200 MG in NS 0.9% 250 ml 210 ML IV ONE (12:42)
[2023-05-10] MEDS ORDERED: Ondansetron 4 mg VIAL 2 MG/ML 2 ml VIAL IV ONE (12:50)
[2023-05-10 13:19] LABS: Urine Appearance Clear; Urine Bilirubin Negative (Negative); Urine Blood 1+ (Negative); Urine Color Yellow; Urine Glucose Negative (Negative); Urine Ketones 2+ (Negative); Urine Nitrite Negative (Negative); Urine Protein Negative (Negative); Urine Specific Gravity 1.035 (1.002-1.030); Urine Urobilinogen Negative (Negative)
[2023-05-10 13:32] LABS: Calcium 8.7 mg/dL (8.6-10.3); Creatinine, Serum 0.58 mg/dL (0.51-0.95); Potassium 3.8 mmol/L (3.5-5.0); eGFR CKD-EPI 94.9 (>60)
[2023-05-10 13:34] LABS: Urine Bacteria Absent (Absent); Urine Red Blood Cell 1+(3-5/hpf) (Absent); Urine Squamous Epithelial Cell Present (Absent); Urine White Blood Cell Trace(0-5/hpf) (Absent)
[2023-05-10] MEDS ORDERED: Albuterol HFA INHALER 8 gm MDI INH PRN (14:28)
[2023-05-10] MEDS: NS 0.9% 1000 ml BAG 1,000 ML IV SCH (14:48)
[2023-05-10 15:31] LABS: TSH Ultra Thyroid Stim Horm 2.39 mcIU/mL (0.34-5.60)
[2023-05-10 15:47] LABS: Urine Osmo 471 mOsm/kg (150-1150)
[2023-05-10 15:49] LABS: Osmolality Serum 261 mOsm/kg (275-295)
[2023-05-10 16:43] LABS: Blood Urea Nitrogen 8 mg/dL (6-24); CO2 Carbon Dioxide 19 mmol/L (22-32); Calcium 8.1 mg/dL (8.6-10.3); Chloride 94 mmol/L (101-111); Creatinine, Serum 0.54 mg/dL (0.51-0.95); Glucose 83 mg/dL (70-100); Sodium 126 mmol/L (135-145); eGFR CKD-EPI 96.6 (>60)
[2023-05-10 16:45] LABS: Anion Gap 13 mmol/L (2-16)
[2023-05-10] MEDS: Benzocaine/Menthol LOZ PO PRN ×2 (17:22→23:53)
[2023-05-10 19:45] LABS: Calcium 8.5 mg/dL (8.6-10.3); Creatinine, Serum 0.73 mg/dL (0.51-0.95); Potassium 3.3 mmol/L (3.5-5.0); eGFR CKD-EPI 86.2 (>60)
[2023-05-10] MEDS ORDERED: Potassium Chlor 20 meq TAB.ER PO ONE (21:47)
[2023-05-11] MEDS: NS 0.9% 1000 ml BAG 1,000 ML IV SCH (00:15)
[2023-05-11] MEDS ORDERED: guaiFENesin 100 mg/5 ml LIQ unit dose cup PO ONE (00:56)
[2023-05-11 06:54] LABS: Albumin 3.6 g/dL (3.2-5.2); Albumin/Globulin Ratio 1.2 (1-3); Calcium 8.3 mg/dL (8.6-10.3); Creatinine, Serum 0.58 mg/dL (0.51-0.95); Potassium 4.1 mmol/L (3.5-5.0); Total Bilirubin 0.4 mg/dL (0.2-1.0); Total Protein 6.6 g/dL (6.4-8.9); eGFR CKD-EPI 94.9 (>60)
[2023-05-11 07:05] LABS: INR 1.28 (0.83-1.13)
[2023-05-11] MEDS ORDERED: Remdesivir 100 mg Vial 100 MG in NS 0.9% 250 ml 230 ML IV SCH (09:00)
[2023-05-11] MEDS ORDERED: Pravastatin 10 mg TAB (NF) PO SCH (09:00)
[2023-05-11] MEDS: Benzocaine/Menthol LOZ PO PRN (10:15)
[2023-05-11 10:29] VITALS: BP 131/76
[2023-05-11 12:30] LABS: Calcium 8.4 mg/dL (8.6-10.3); Creatinine, Serum 0.58 mg/dL (0.51-0.95); Potassium 3.7 mmol/L (3.5-5.0); eGFR CKD-EPI 94.9 (>60)
== END 2023-05-11 14:50 | disposition home or self-care (01) ==
LOC: EDHOLD 10:11 → ED 10:11 → SUATTDRO 12:40 → MED 14:41
PROVIDERS: ADMIT Student in an Organized Health Care Education/Training Program; ATTEND Hospitalist